=== PATIENT | female | born 1940 | race Caucasian/White ===

== ENCOUNTER → 2018-04-11 | Outpatient (CLI) | payer OTHER ==
[~2018-04-11] MED LIST: BAYER BACK & B1 EACH PO; EXTRA STRENGTH500 M1 PO; FLUOXETINE HCL20 MG PO; FLUTICASONE PRO16 GM BOTH NARES; LEVOTHYROXINE100 MCG PO; MELOXICAM15 MG PO; METFORMIN HCL1000 MG PO; PRAVASTATIN SOD40 MG PO; VITAMIN B-650 MG PO; VITAMIN C1000 MG PO; VITAMIN D5000 UNI1 PO
== END | disposition home or self-care (01) ==
LOC: CDC 11:06
DX: Z01.810 Encounter for preprocedural cardiovascular examination (principal)
CPT/HCPCS: 93000

== ENCOUNTER 2018-06-01 03:35 | Inpatient (IN) | payer OTHER ==
[~2018-06-01] VITALS: Ht 160 cm; Wt 87.0 kg
[~2018-06-01 03:35] MED LIST changes: +VITAMIN B-125000 MCG SL; -VITAMIN B-650 MG PO
[2018-06-01 06:00] LABS: HEMOGLOBIN 10.7 G/DL (11.9-15.5); MCH 29.6 PG (29.0-34.0); MCHC 34.5 G/DL (30.0-36.0); MCV 85.6 FL (83-99); PLATELET COUNT 232 K/uL (156-360); RBC DIS.WIDTH-SD 40.8 % (39-53); RED BLOOD COUNT 3.62 M/uL (3.80-5.20); WHITE BLOOD COUNT 12.9 K/uL (4.1-10.2)
[2018-06-01 06:02] LABS: ALBUMIN 3.9 g/dL (3.2-4.8)
[2018-06-01 06:03] LABS: CHLORIDE 99 mEq/L (99-109); POTASSIUM 4.1 mEq/L (3.7-5.4); SODIUM 135 mEq/L (136-147)
[2018-06-01 06:05] LABS: GLUCOSE 177 mg/dL (70-99); TOTAL PROTEIN 7.1 g/dL (6.4-8.3)
[2018-06-01 06:07] LABS: TOTAL BILIRUBIN 0.6 mg/dL (0.0-1.0)
[2018-06-01 06:08] LABS: ALKALINE PHOSPHATASE 54 IU/L (3-129)
[2018-06-01 06:09] LABS: CREATININE 1.3 mg/dL (0.6-1.3); GFR ESTIMATE (CALCULATED) 42 mL/min/
[2018-06-01 06:10] LABS: AST (GOT) 17 IU/L (2-34); UREA NITROGEN (BUN) 23 mg/dL (9-23)
[2018-06-01 06:12] LABS: ALT (GPT) 15 IU/L (3-49); LIPASE 25 U/L (1.0-51.0)
[2018-06-01 06:18] LABS: TROP-I INTERPRETATION NEGATIVE; TROPONIN-I < 0.01 ng/mL (0.0-0.30)
[2018-06-01] MEDS ORDERED: PRINIVIL10 MG PO (07:37)
[2018-06-01 10:07] VITALS: BP 148/72
[2018-06-01 15:21] VITALS: BP 142/67
[2018-06-01 19:36] VITALS: BP 159/74
[2018-06-02] VITALS (8 sets, daily range): BP systolic 123–160; BP diastolic 60–92
[2018-06-02 06:40] LABS: BASOPHIL (%) 0.4 % (0-1); EOSINOPHIL (%) 1.6 % (0-5); EOSINOPHIL COUNT 0.1 K/uL (0-0.3); HEMATOCRIT 31.3 % (36.0-46.0); HEMOGLOBIN 10.5 G/DL (11.9-15.5); IMMATURE GRANULOCYTE (%) 1.6 % (0.0-0.7); LYMPHOCYTE (%) 12.3 % (15-42); LYMPHOCYTE COUNT 0.9 K/uL (1.0-2.8); MCHC 33.5 G/DL (30.0-36.0); MCV 86.5 FL (83-99); MONOCYTE (%) 8.5 % (3-12); MONOCYTE COUNT 0.6 K/uL (0-0.8); NEUTROPHIL (%) 75.6 % (45-76); NEUTROPHIL COUNT 5.5 K/uL (1.8-6.4); PLATELET COUNT 226 K/uL (156-360); RBC DIS.WIDTH-CV 13.3 % (11.8-14.6); RBC DIS.WIDTH-SD 41.8 % (39-53); RED BLOOD COUNT 3.62 M/uL (3.80-5.20); WHITE BLOOD COUNT 7.3 K/uL (4.1-10.2)
[2018-06-02 07:02] LABS: CHLORIDE 106 MEQ/L (99-109); CREATININE 1.3 MG/DL (0.6-1.3); GFR ESTIMATE (CALCULATED) 42 mL/min/; GLUCOSE 153 mg/dL (70-99); POTASSIUM 4.6 MEQ/L (3.7-5.4); SODIUM 139 MEQ/L (136-147); UREA NITROGEN (BUN) 19 mg/dL (9-23)
[2018-06-02] MEDS ORDERED: ZITHROMAX Z-PA250 MG PO (09:19)
[2018-06-03 03:39] VITALS: BP 125/67
[2018-06-03 07:26] VITALS: BP 128/67; BP 128/678
[2018-06-03] MEDS ORDERED: DOXYCYCLINE HY100 M3 PO (11:46)
== END 2018-06-03 13:27 | disposition home or self-care (01) | DRG 194 ==
LOC: EME → EDBD 03:35 → ENRESERV 08:06 → EDOF 08:09 → 5SOUTH 08:09 → ENPENDDIS 06-03 12:26 → 5SOUTH 06-03 13:27
PROVIDERS: Emergency Medicine; Hospitalist
DX: J18.9 Pneumonia, unspecified organism (principal); N17.9 Acute kidney failure, unspecified; R55 Syncope and collapse; E86.1 Hypovolemia; E86.0 Dehydration; I12.9 Hypertensive chronic kidney disease with stage 1 through stage 4 chronic kidney disease, or unspecified chronic kidney disease; E11.22 Type 2 diabetes mellitus with diabetic chronic kidney disease; N18.3 Chronic kidney disease, stage 3 (moderate); R00.0 Tachycardia, unspecified; D64.9 Anemia, unspecified; E03.9 Hypothyroidism, unspecified; G43.909 Migraine, unspecified, not intractable, without status migrainosus; E66.9 Obesity, unspecified; Z68.33 Body mass index [BMI] 33.0-33.9, adult
CPT/HCPCS: 70450; 71046; 80048; 80053; 82948; 83605; 83690; 84484; 85025; 85027; 87040; 87070; 87077; 87147; 87186; 87205; 87449; 93005; 93306; 94640; 94799; 99281; 99285; J0696; J1644; J1815; J1956; J7030